=== PATIENT | male | born 1950 | race Caucasian/White ===

== ENCOUNTER 2017-02-27 18:47 | Inpatient (IN) | payer OTHER, BC ==
[~2017-02-27] VITALS: Ht 177.8 cm; Wt 81.0 kg
[2017-02-27] MEDS ORDERED: RENVELA800 M1 PO (21:06)
[2017-02-27] MEDS ORDERED: HYDRALAZINE HCL25 MG PO (21:06)
[2017-02-27] MEDS ORDERED: GABAPENTIN300 M4 PO (21:07)
[2017-02-27] MEDS ORDERED: NORCO1 TA2 PO (21:07)
[2017-02-27] MEDS ORDERED: RESTORIL15 MG PO (21:07)
[2017-02-27] MEDS ORDERED: ELIQUIS2.5 MG PO (21:08)
[2017-02-27] MEDS ORDERED: LEADER OMEPRAZO20 M1 PO (21:08)
[2017-02-27] MEDS ORDERED: LIPI20 PO (21:09)
[2017-02-27] MEDS ORDERED: ASPIR 8181 MG PO (21:09)
[2017-02-27 22:57] VITALS: BP 194/114
[2017-02-27 23:19] VITALS: BP 173/114
[2017-02-28] VITALS (13 sets, daily range): BP systolic 104–167; BP diastolic 68–105
[2017-02-28 01:21] LABS: BASOPHIL % 0.1 % (0-2); PLATELET COUNT 191 x10^3mcL (130-400)
[2017-02-28 01:24] LABS: RED CELL DISTRIBUTION WIDTH 18.4 % (11.5-14.5)
[2017-02-28 01:37] LABS: BILIRUBIN TOTAL 0.51 mg/dL (0.20-1.00); CARBON DIOXIDE 22.8 mmol/L (21-32); POTASSIUM SERUM 4.1 mmol/L (3.5-5.1); TOTAL PROTEIN, SERUM 6.7 g/dL (6.4-8.2)
[2017-02-28 01:51] LABS: FREE T4 0.78 ng/dL (0.76-1.46); FREE THYROXINE INDEX 1.7 ug/dL (1.4-4.5); T4(THYROXINE) 4.8 ug/dL (4.7-13.3)
[2017-02-28 02:00] LABS: ALBUMIN 2.7 g/dL (3.4-5.0); CHOLESTEROL/HDL RATIO 2.4
[2017-02-28 02:11] LABS: CREATININE SERUM 9.9 mg/dL (0.7-1.3)
[2017-02-28 02:50] LABS: T3 TOTAL 0.51 ng/mL
[2017-02-28 07:04] LABS: CALCIUM 7.7 mg/dL (8.5-10.1); CARBON DIOXIDE 21.6 mmol/L (21-32); MAGNESIUM 2.3 mg/dL (1.8-2.4); POTASSIUM SERUM 4.5 mmol/L (3.5-5.1)
[2017-02-28 07:07] LABS: BASOPHIL % 0.5 % (0-2); PLATELET COUNT 184 x10^3mcL (130-400)
[2017-02-28 07:08] LABS: RED CELL DISTRIBUTION WIDTH 18.5 % (11.5-14.5)
[2017-02-28 07:09] LABS: rbc morphology (normal/abnorm) ABNORMAL (NORMAL)
[2017-02-28 08:13] LABS: CREATININE SERUM 10.2 mg/dL (0.7-1.3)
[2017-03-01 05:53] LABS: BASOPHIL % 0.3 % (0-2); PLATELET COUNT 179 x10^3mcL (130-400)
[2017-03-01 06:08] LABS: CALCIUM 7.8 mg/dL (8.5-10.1); CARBON DIOXIDE 26.6 mmol/L (21-32); MAGNESIUM 2.3 mg/dL (1.8-2.4); POTASSIUM SERUM 4.5 mmol/L (3.5-5.1)
[2017-03-01 06:23] LABS: CREATININE SERUM 10.3 mg/dL (0.7-1.3)
[2017-03-01 06:41] LABS: RED CELL DISTRIBUTION WIDTH 18.3 % (11.5-14.5)
[2017-03-01 06:42] LABS: rbc morphology (normal/abnorm) ABNORMAL (NORMAL)
[2017-03-01 06:47] VITALS: BP 134/89
[2017-03-01 06:50] LABS: PHOSPHOROUS 10.3 mg/dL (2.5-4.9)
[2017-03-01 08:00] VITALS: BP 141/91
[2017-03-01 14:30] VITALS: BP 115/73
[2017-03-01 21:45] VITALS: BP 132/81
[2017-03-01 22:35] VITALS: BP 126/99
[2017-03-01 23:42] VITALS: BP 120/90
[2017-03-02 00:05] VITALS: BP 102/82
[2017-03-02 05:34] VITALS: BP 114/76
[2017-03-02 07:08] LABS: BASOPHIL % 0.5 % (0-2); PLATELET COUNT 165 x10^3mcL (130-400)
[2017-03-02 07:17] LABS: RED CELL DISTRIBUTION WIDTH 18.4 % (11.5-14.5)
[2017-03-02 07:18] LABS: rbc morphology (normal/abnorm) ABNORMAL (NORMAL)
[2017-03-02 07:28] LABS: CALCIUM 7.7 mg/dL (8.5-10.1); CARBON DIOXIDE 23.3 mmol/L (21-32); MAGNESIUM 2.2 mg/dL (1.8-2.4); PHOSPHOROUS 8.7 mg/dL (2.5-4.9); POTASSIUM SERUM 4.8 mmol/L (3.5-5.1)
[2017-03-02 07:40] LABS: CREATININE SERUM 9.9 mg/dL (0.7-1.3)
[2017-03-02 10:00] VITALS: BP 106/75
[2017-03-02 15:00] VITALS: BP 113/75
[2017-03-02 22:04] VITALS: BP 102/70
[2017-03-03 05:59] VITALS: BP 143/86
[2017-03-03 06:27] LABS: CALCIUM 8.1 mg/dL (8.5-10.1); CARBON DIOXIDE 26.3 mmol/L (21-32)
[2017-03-03 07:21] LABS: CREATININE SERUM 9.4 mg/dL (0.7-1.3)
[2017-03-03 07:28] LABS: BASOPHIL % 0.4 % (0-2); PLATELET COUNT 165 x10^3mcL (130-400)
[2017-03-03 07:30] LABS: RED CELL DISTRIBUTION WIDTH 18.7 % (11.5-14.5)
[2017-03-03 07:32] LABS: rbc morphology (normal/abnorm) ABNORMAL (NORMAL)
[2017-03-03 09:34] VITALS: BP 93/57
[2017-03-03 09:44] LABS: BASOPHIL % 0.5 % (0-2); PLATELET COUNT 178 x10^3mcL (130-400)
[2017-03-03 09:46] LABS: RED CELL DISTRIBUTION WIDTH 18.1 % (11.5-14.5)
[2017-03-03 09:47] LABS: rbc morphology (normal/abnorm) ABNORMAL (NORMAL)
[2017-03-03 10:01] LABS: CALCIUM 8.1 mg/dL (8.5-10.1); CARBON DIOXIDE 26.5 mmol/L (21-32); POTASSIUM SERUM 4.5 mmol/L (3.5-5.1)
[2017-03-03 10:08] LABS: CREATININE SERUM 9.2 mg/dL (0.7-1.3)
[2017-03-03 16:38] VITALS: BP 117/74
[2017-03-03 19:40] VITALS: BP 122/67
[2017-03-04 06:01] VITALS: BP 102/64
[2017-03-04 06:28] LABS: BASOPHIL % 0.4 % (0-2); PLATELET COUNT 159 x10^3mcL (130-400)
[2017-03-04 06:34] LABS: CARBON DIOXIDE 23.2 mmol/L (21-32); MAGNESIUM 2.2 mg/dL (1.8-2.4); PHOSPHOROUS 8.9 mg/dL (2.5-4.9); POTASSIUM SERUM 4.3 mmol/L (3.5-5.1)
[2017-03-04 06:36] LABS: CREATININE SERUM 8.8 mg/dL (0.7-1.3)
[2017-03-04 07:12] LABS: RED CELL DISTRIBUTION WIDTH 18.4 % (11.5-14.5)
[2017-03-04 08:56] VITALS: Ht 177.8 cm; Wt 81.0 kg
[2017-03-04 09:25] VITALS: BP 111/74
[2017-03-04 12:26] VITALS: BP 115/68
[2017-03-04 17:47] VITALS: BP 129/74
[2017-03-04 21:38] VITALS: BP 131/84
[2017-03-05 06:15] VITALS: BP 124/82
[2017-03-05 06:36] LABS: BASOPHIL % 0.4 % (0-2); PLATELET COUNT 180 x10^3mcL (130-400)
[2017-03-05 06:46] LABS: CARBON DIOXIDE 23.9 mmol/L (21-32); MAGNESIUM 2.2 mg/dL (1.8-2.4); POTASSIUM SERUM 3.8 mmol/L (3.5-5.1)
[2017-03-05 07:13] LABS: RED CELL DISTRIBUTION WIDTH 19.1 % (11.5-14.5)
[2017-03-05 07:26] LABS: CREATININE SERUM 8.5 mg/dL (0.7-1.3); PHOSPHOROUS 10.8 mg/dL (2.5-4.9)
[2017-03-05 10:01] VITALS: BP 102/63
[2017-03-05 14:49] VITALS: BP 98/69
[2017-03-05 17:46] VITALS: BP 104/68
[2017-03-05 21:14] VITALS: BP 107/71
[2017-03-06 05:57] LABS: BASOPHIL % 0.2 % (0-2); PLATELET COUNT 205 x10^3mcL (130-400)
[2017-03-06 06:20] LABS: CALCIUM 8.1 mg/dL (8.5-10.1); MAGNESIUM 2.3 mg/dL (1.8-2.4); POTASSIUM SERUM 3.6 mmol/L (3.5-5.1)
[2017-03-06 06:32] VITALS: BP 129/80
[2017-03-06 06:38] LABS: RED CELL DISTRIBUTION WIDTH 19.3 % (11.5-14.5)
[2017-03-06 06:55] LABS: CREATININE SERUM 8.5 mg/dL (0.7-1.3); PHOSPHOROUS 9.1 mg/dL (2.5-4.9)
[2017-03-06] MEDS ORDERED: GABAPENTIN100 M2 PO (08:42)
[2017-03-06 10:00] VITALS: BP 117/70
[2017-03-06] MEDS ORDERED: ROB750 PO (10:09)
[2017-03-06] MEDS ORDERED: METOPROLOL TART25 M1 PO (10:10)
[2017-03-06] MEDS ORDERED: CAR60 PO (10:10)
[2017-03-06] MEDS ORDERED: APAP/OXYCODONE1 TA4 PO (10:11)
[2017-03-06] MEDS ORDERED: DIL2I IV (10:11)
[2017-03-06 12:13] VITALS: BP 117/70
[2017-03-06 12:27] VITALS: BP 117/70
== END 2017-03-06 14:25 | DRG 480 ==
LOC: ED 18:47 → MU 20:41 → DU 20:41 → MU 03-05 13:40
PROVIDERS: Family Medicine; Neuromusculoskeletal Medicine, Sports Medicine; ADMIT Family Medicine
PROC: 0QS904Z Reposition Left Femoral Shaft with Internal Fixation Device, Open Approach (ICD-10-PCS; principal; 2017-03-03 10:00)
DX: M97.02XA Periprosthetic fracture around internal prosthetic left hip joint, initial encounter (principal); N18.6 End stage renal disease; I50.43 Acute on chronic combined systolic (congestive) and diastolic (congestive) heart failure; N17.0 Acute kidney failure with tubular necrosis; I12.0 Hypertensive chronic kidney disease with stage 5 chronic kidney disease or end stage renal disease; M96.662 Fracture of femur following insertion of orthopedic implant, joint prosthesis, or bone plate, left leg; S60.211A Contusion of right wrist, initial encounter; N28.1 Cyst of kidney, acquired; I48.91 Unspecified atrial fibrillation; W18.39XA Other fall on same level, initial encounter; Y93.H2 Activity, gardening and landscaping; Y92.017 Garden or yard in single-family (private) house as the place of occurrence of the external cause; Z99.2 Dependence on renal dialysis; Z79.82 Long term (current) use of aspirin; Z68.27 Body mass index [BMI] 27.0-27.9, adult; Z95.1 Presence of aortocoronary bypass graft; Z79.01 Long term (current) use of anticoagulants; Z86.73 Personal history of transient ischemic attack (TIA), and cerebral infarction without residual deficits
CPT/HCPCS: 76001; 82962; 83880; 84439; 94150; 97110-GP; 97116-GP; 97530-GP; C1713; C9113; J0690; J1170; J1644; J1885; J2250; J2270; J2405; J2704; J3010; J3490; J7030; P9016; P9045; Q0092